=== PATIENT | female | born 1970 | race Asian ===

== ENCOUNTER 2022-07-05 12:27 | Outpatient (CLI) | payer OTHER ==
[~2022-07-05 12:27] MED LIST: GADOBUTROL 7.5 MMOL/7.5 ML VIAL ONE
[2022-07-05] MEDS ORDERED: GADOBUTROL 7.5 MMOL/7.5 ML VIAL IVP ONE (14:06)
--- NOTE | 2022-07-05 16:55 | MRI Report ---
PROCEDURE: PELVIS W/WO INDICATIONS: PELVIS PAIN CONTRAST: GADAVIST 6.1 ML TECHNIQUE: Coronal ultra fast SE, sagittal breath-hold T2 FSE; axial T1 FSE with and without fat saturation thro ugh the pelvis. Optional long- and short-axis uterine nonbreath-hold T2 FSE through the uterus. Sag ittal or axial dynamic ultra fast GE during administration of contrast. Post-contrast axial or coron al ultra fast GE / 2-D spoiled GE with fat saturation from the iliac crests to the symphysis. Option al diffusion weighted imaging and ADC may be performed. COMPARISON: None. FINDINGS: Image quality: Excellent. Uterus: Uterus is retroverted and normal in size. 4 or 5 small uterine fibroids. Submucosal fibroid at the fundus measuring 1.2 cm. Mild distortion of the endometrial canal. Right anterior lower uterin e segment intramural fibroid measuring 1 cm. Subcentimeter left posterior intramural fibroid. Left ex ophytic fibroid measuring 1.7 cm, (08/22). T2 hypointense. No suspicious enhancement. Endometrium is n ormal in thickness measuring 0.3 cm. Junctional zone is normal in thickness at 12 mm or less. Adnexa: Both ovaries are normal in size, without suspicious cystic or solid lesions. Urinary system: Bladder wall is normal in thickness. Distal ureters are non distended. Urethra alyssa ears normal in morphology. Nodes and vessels: No pelvic or inguinal adenopathy by size criteria. Iliac vessels are normal in s ize. Bowel and peritoneum: No pathologic free pelvic fluid. Inferior colon and small bowel loops are nor mal in caliber. Soft tissues: No inguinal hernias. No findings of pelvic floor incompetence in the absence of provo cation. Bones: Marrow demonstrates normal overall signal. IMPRESSION: 1. Multiple small uterine fibroids. Left exophytic fibroid measuring 1.7 cm. Subserosal fibroid at th e fundus measuring 1.2 cm. -Pelvic ultrasound may be helpful for further evaluation. 2. Endometrium measures 3 mm. 3. No suspicious adnexal enhancement. Reviewed by: Bakari Vazquez MD on 07/05/2022 4:54 PM PDT Approved by: Bakari Vazquez MD on 07/05/2022 4:54 PM PDT Station ID: [id number]
== END 2022-07-05 12:28 | disposition home or self-care (01) ==
LOC: DI 12:27
PROVIDERS: ATTEND Nurse Practitioner Family
DX: D25.0 Submucous leiomyoma of uterus (principal); D25.1 Intramural leiomyoma of uterus; D25.2 Subserosal leiomyoma of uterus
CPT/HCPCS: 72197; A9585